=== PATIENT | male | born 1965 ===

== ENCOUNTER 2016-08-10 19:25 | Emergency (ER) | payer MEDICAID, OTHER ==
[2016-08-10 19:25] VITALS: BMI 28.5
--- NOTE | 2016-08-10 20:35 | C.PDOC ---
History Of Present Illness 50 y/o male presents to ED with complaints of fever and cough productive of yellow sputum for 4 days. Patient also reports shortness of breath. Patient notes PMHx of asthma and states he has had no relief with his medications. Otherwise, denies headache, sore throat, chest pain, palpitations, nausea, vomiting, or other associated symptoms. Time Seen by Provider: 08/10/16 19:50 Chief Complaint (Nursing): Flu-like Symptoms History Per: Patient History/Exam Limitations: no limitations Onset/Duration Of Symptoms: Days Current Symptoms Are (Timing): Still Present Sick Contacts (Context): None Associated Symptoms: Fever, Cough, Sputum. denies: Sore Throat, Vomiting, Diarrhea Ear Symptoms: Bilateral: None Recent travel outside of the [place]: No Past Medical History Reviewed: Historical Data, Nursing Documentation, Vital Signs Vital Signs: Last Vital Signs Temp 102.4 F H 08/10/16 19:34 Pulse 108 H 08/10/16 19:34 Resp 22 08/10/16 19:34 BP 143/92 H 08/10/16 19:34 Pulse Ox 94 L 08/10/16 20:35 - Medical History PMH: Anxiety, Asthma, Back Problems (herniated disc), Depression, Diabetes, HTN , Hypercholesterolemia, Chronic Pain (back pain, MRI with herniated disc and sciatica) Family History: States: Diabetes - Social History Hx Tobacco Use: No Hx Alcohol Use: No Hx Substance Use: No - Immunization History Hx Tetanus Toxoid Vaccination: No Hx Influenza Vaccination: No Hx Pneumococcal Vaccination: No Review Of Systems Except As Marked, All Systems Reviewed And Found Negative. Constitutional: Positive for: Fever ENT: Negative for: Throat Pain Cardiovascular: Negative for: Chest Pain, Palpitations Respiratory: Positive for: Cough, Shortness of Breath, Sputum Gastrointestinal: Negative for: Nausea, Vomiting, Abdominal Pain, Diarrhea Skin: Negative for: Rash Neurological: Negative for: Headache, Dizziness Physical Exam - Physical Exam Appears: Non-toxic, No Acute Distress Skin: Normal Color, Warm, Dry Head: Atraumatic, Normacephalic Eye(s): bilateral: Normal Inspection, EOMI Nose: Normal Oral Mucosa: Moist Throat: Normal, No Erythema, No Exudate, No Drooling Neck: Supple Chest: Symmetrical Cardiovascular: Rhythm Regular, No Murmur Respiratory: No Rales, Rhonchi, No Stridor, No Wheezing Gastrointestinal/Abdominal: Soft, No Tenderness, No Guarding, No Rebound Back: Normal Inspection Extremity: Normal ROM, Capillary Refill (< 2 sec.) Neurological/Psych: Oriented x3, Normal Speech, Normal Cognition ED Course And Treatment O2 Sat by Pulse Oximetry: 94 (RA) Pulse Ox Interpretation: Normal - Radiology CXR: Interpreted by Me CXR Interpretation: Yes: No Acute Disease. No: Infiltrates Medical Decision Making Medical Decision Making: Impression: 50 yo male with history of asthma c/o fever, productive cough, and occasional SOB for several days. (+) Rhonchi on exam. Plan: * Chest Xray * Reassess Prior Visits: Notes and results from previous visits were reviewed. Progress Notes: CxR shows no infiltrates or acute disease. Treated with azithromycin. On reevaluation, lungs are CTA, and patient reports improvement. Patient instructed to take medications as directed. Follow up with PMD/clinic advised. Disposition Counseled Patient/Family Regarding: Diagnosis, Need For Followup, Rx Given - Disposition Disposition: HOME/ ROUTINE Disposition Time: 20:34 Condition: STABLE Additional Instructions: Take Tylenol or Motrin alternating every 4-6 hours for Fever 100.4F or higher. Rest and drink plenty of fluids. May use cool mist humidifier or vaporizer in room. Try taking over the counter antihistamine (Claritin, Abiola, Zyrtec), Decongestant or Cough medicine (Mucinex) as needed every 6-8 hours. Follow up with your primary medical doctor or clinic in 1 week for further evaluation. 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 - Scribe Statement The provider has reviewed the documentation as recorded by the Marilynn Granados Provider Scribe Attestation: All medical record entries made by the Scribe were at my direction and personally dictated by me. I have reviewed the chart and agree that the record accurately reflects my personal performance of the history, physical exam, medical decision making, and the department course for this patient. I have also personally directed, reviewed, and agree with the discharge instructions and disposition.
[2016-08-10 20:51] VITALS: BP 134/79; PULSE 92; RESP 18; TEMP 101.6
[2016-08-10 21:22] VITALS: O2SAT 94
--- NOTE | 2016-08-11 11:00 | RAD ---
HISTORY: cough and fever COMPARISON: 06/30/2014 TECHNIQUE: Chest PA and lateral FINDINGS: LUNGS: No active pulmonary disease. PLEURA: No significant pleural effusion identified. No pneumothorax apparent. CARDIOVASCULAR: Normal. OSSEOUS STRUCTURES: No significant abnormalities. VISUALIZED UPPER ABDOMEN: Normal. OTHER FINDINGS: None. IMPRESSION: No active disease.
== END 2016-08-10 20:55 | disposition home or self-care (01) ==
LOC: C.ER 19:25
DX: J20.9 Acute bronchitis, unspecified (principal)